=== PATIENT | female | born 1990 | race Caucasian/White ===

== ENCOUNTER 2019-02-26 01:40 | Emergency (ER) | payer OTHER ==
--- NOTE | 2019-02-26 02:25 | ED Physician Documentation ---
PD HPI HEADACHE - Stated complaint Stated Complaint: HEADACHE - Chief complaint Chief Complaint: Neuro - History obtained from History obtained from: Patient - History of Present Illness Timing - onset: Today Timing - onset during: Rest Timing - duration: Hours Timing - details: Gradual onset, Constant, Still present in ED Pain level now: 6 Worst headache ever?: No: Worst headache ever? Location: Front, Right, Other (occipital) Quality: Throbbing Associated symptoms: No: Fever, Stiff neck, Nausea, Vomiting, Weakness, Numbness, Syncope, Seizure, Eye pain, Vision changes Improved by: Nothing Contributing factors: No: Anticoagulated, Possible carbon monoxide, Recent illness, Trauma Recently seen: Not recently seen Review of Systems Constitutional: reports: Reviewed and negative Eyes: reports: Reviewed and negative GI: reports: Reviewed and negative Neurologic: reports: Headache. denies: Generalized weakness, Focal weakness, Numbness PD PAST MEDICAL HISTORY - Past Medical History Past Medical History: Yes - Past Surgical History Past Surgical History: No - Present Medications Home Medications: Ambulatory Orders Medication Instructions Recorded Confirmed Ibuprofen [Ibu] 800 mg PO Q8HR PRN #20 tablet 02/26/19 Tramadol HCl 50 - 100 mg PO Q6HR PRN #20 tablet 02/26/19 - Allergies Allergies/Adverse Reactions: Allergies Allergy/AdvReac Type Severity Reaction Status Date / Time No Known Drug Allergies Allergy Verified 02/26/19 01:56 - Social History Does the pt smoke?: No Smoking Status: Never smoker Does the pt drink ETOH?: No Does the pt have substance abuse?: No - Immunizations Immunizations are current?: No Immunizations: TDAP >10years/unknown - POLST Patient has POLST: No PD ED PE NORMAL - Vitals Vital signs reviewed: Yes - General General: Alert and oriented X 3, No acute distress, Well developed/nourished - HEENT HEENT: PERRL, EOMI - Neck Neck: Supple, no meningeal sign - Cardiac Cardiac: RRR, No murmur, No gallop, No rub - Respiratory Respiratory: No respiratory distress, Clear bilaterally - Abdomen Abdomen: Soft, Non tender - Neuro Neuro: Alert and oriented X 3, web specialist 2-12 intact, No motor deficit, No sensory deficit, Normal speech Eye Opening: Spontaneous Motor: Obeys Commands Verbal: Oriented GCS Score: 15 Results - Vitals Vitals: Oxygen O2 Source Room air - Rads (name of study) CT head Radiology: Prelim report reviewed, See rad report PD MEDICAL DECISION MAKING - ED course Complexity details: reviewed results, re-evaluated patient, considered differential, d/w patient Departure - Departure Disposition: 01 Home, Self Care Clinical Impression: Headache Condition: Good Health Concerns: headache Plan of Treatment: ibuprofen, tramadol as directed for headache Care Goals: pain control Assessment: see diagnosis Instructions: ED Cephalgia Unspecified Prescriptions: Tramadol HCl 50 - 100 mg PO Q6HR PRN #20 tablet PRN Reason: Pain Ibuprofen [Ibu] 800 mg PO Q8HR PRN #20 tablet PRN Reason: Pain Discharge Date/Time: 02/26/19 05:04
[2019-02-26] MEDS ORDERED: KETOROLAC 60 MG/2 ML VIAL IM STA (02:56)
--- NOTE | 2019-02-26 03:25 | CT Report ---
Reason: headache Procedure Date: 02/26/2019 Accession Number: [id number] / [id number] Procedure: CT - HEAD WO CPT Code: FULL RESULT: EXAM: CT HEAD EXAM DATE: 02/26/2019 03:14 AM. CLINICAL HISTORY: Headache. COMPARISON: None. TECHNIQUE: Multiaxial CT images were obtained from the foramen magnum to the vertex. Reformats: Sagittal and coronal. IV contrast: None. In accordance with CT protocol optimization, one or more of the following dose reduction techniques were utilized for this exam: automated exposure control, adjustment of mA and/or KV based on patient size, or use of iterative reconstructive technique. FINDINGS: Parenchyma: No intraparenchymal hemorrhage. No evidence of mass, midline shift, or CT findings of infarction. Morris-white differentiation is distinct. Extraaxial Spaces: Normal for age. No subdural or epidural collections identified. Ventricles: Normal in size and position. Sinuses and Orbits: Imaged paranasal sinuses, orbits, and mastoids show no significant abnormality. Bones: No evidence of fracture or calvarial defect. Other: None. IMPRESSION: Negative noncontrast head CT. [facility]
[2019-02-26 04:29] VITALS: BP 110/56
== END 2019-02-26 05:04 | disposition home or self-care (01) ==
LOC: ED 01:40
DX: R51 Headache (principal)
CPT/HCPCS: 70450; 96372; 99283